=== PATIENT | male | born 1980 | race Caucasian/White ===

== ENCOUNTER 2021-10-25 18:16 | Inpatient (IN) | payer MEDICAID ==
[~2021-10-25] VITALS: Ht 167.6 cm; Wt 104.3 kg
[2021-10-25] MEDS ORDERED: CEFTRIAXONE 1 G in IV DEXTROSE 5% 50 ML IV ONE (19:30)
[2021-10-25] MEDS ORDERED: IV NORMAL SALINE 1000 ML BAG IV ONE (19:30)
[2021-10-25] MEDS ORDERED: VANCOMYCIN IV 1,000 MG in IV DEXTROSE 5% 250 ML IV ONE (19:30)
[2021-10-25] MEDS ORDERED: METRONIDAZOLE 500 MG/NS 100ML 100 ML IV ONE ×2 (19:30→20:17)
[2021-10-25] MEDS ORDERED: HYDROMORPHONE 1 MG/1 ML DISP.SYRIN IV ONE (19:45)
[2021-10-25] MEDS ORDERED: ONDANSETRON 4 MG/2 ML VIAL IV ONE (19:45)
[2021-10-25 20:11] LABS: HEMATOCRIT 39.2 % (36.7-47.1); MEAN CORPUSCULAR HEMOGLOBIN 29.1 uug (23.8-33.4); MEAN CORPUSCULAR VOLUME 87.1 fL (73.0-96.2); PLATELET COUNT (AUTO) 256 K/uL (152-348)
[2021-10-25] MEDS ORDERED: VANCOMYCIN IV 200 ML ONE (20:17)
[2021-10-25] MEDS ORDERED: CEFTRIAXONE /D5W 50ML IVPB **ER PYXIS IV ONE (20:18)
[2021-10-25 20:19] LABS: CARBON DIOXIDE 26 mmol/L (21-32); CHLORIDE 102 mmol/L (98-107); CREATININE 0.9 mg/dL (0.6-1.3); UREA NITROGEN, BLOOD 13 mg/dL (7-18)
[2021-10-25 20:28] LABS: GLUCOSE 335 mg/dL (74-106)
[2021-10-25 20:30] LABS: *BILIRUBIN,URIN NEGATIVE (NEGATIVE); *COLOR,URINE YELLOW (YELLOW); *KETONES,URINE TRACE (NEGATIVE); LEUKOCYTE ESTERASE ,URINE NEGATIVE (NEGATIVE); NITRITE, URINE NEGATIVE (NEGATIVE); PH,URINE 5.5 (5.0-8.0)
[2021-10-25 20:33] LABS: ALANINE AMINOTRANSFERASE 26 U/L (16-63); ALKALINE PHOSPHATASE 100 U/L (50-136); ASPARTATE AMINOTRANSFERASE 18 U/L (15-37); BILIRUBIN,DIRECT 0.1 mg/dL (0.0-0.2); BILIRUBIN,TOTAL 0.4 mg/dL (0.2-1.0); TOTAL PROTEIN, SERUM 7.3 g/dL (6.4-8.2)
[2021-10-25 20:35] LABS: *BLOOD, URINE TRACE (NEGATIVE); UGLUCOSE 3+ (NEGATIVE)
[2021-10-25 20:42] LABS: *CLARITY,URINE SLIGHTLY HAZY (CLEAR); BACTERIA,URINE FEW /HPF (NONE SEEN); SQUAMOUS EPITHELIAL CELL,UR MODERATE /HPF (NONE SEEN)
[2021-10-25] MEDS ORDERED: ONDANSETRON 4 MG/2 ML VIAL ONE (20:46)
[2021-10-25] MEDS ORDERED: HYDROMORPHONE 1 MG/1 ML DISP.SYRIN ONE (20:47)
[2021-10-25] MEDS ORDERED: DEXTROSE 50% 50 ML DISP.SYRIN IV PRN (22:30)
[2021-10-25] MEDS ORDERED: ONDANSETRON 4 MG/2 ML VIAL IV PRN (22:30)
[2021-10-25] MEDS ORDERED: MAGNESIUM HYDROXIDE 30 ML LIQUID UDC PO PRN (22:30)
[2021-10-25] MEDS ORDERED: REMEDY ESSENTIAL ZINC PASTE 113 GM TP PRN (22:30)
[2021-10-25 23:30] VITALS: BP 118/70
[2021-10-26] MEDS: IV NS 1000 ML 1,000 ML IV PRN ×2 (00:13→17:21)
[2021-10-26] MEDS ORDERED: PIPERACILLIN/TAZOBACTAM/D5W 100 ML IV ONE (00:24)
[2021-10-26] MEDS ORDERED: METRONIDAZOLE 500 MG/NS 100ML 100 ML IV ONE (00:24)
[2021-10-26] MEDS: PIPERACILLIN SODIUM/TAZOBACTAM 3.375 G in IV DEXTROSE 5% 50 ML IV SCH ×5 (00:42→23:51)
[2021-10-26 04:00] VITALS: BP 133/88
[2021-10-26] MEDS: ACETAMINOPHEN 325 MG TABLET PO PRN ×3 (05:06→23:51)
[2021-10-26] MEDS ORDERED: PIPERACILLIN/TAZOBACTAM/D5W 50 ML IV ONE (05:27)
[2021-10-26] MEDS ORDERED: METRONIDAZOLE 500 MG/NS 100ML 500 MG in PREMIXED 1 EACH IV SCH ×2 (06:00→14:00)
[2021-10-26] MEDS: BLOOD SUGAR DIAGNOSTIC 1 EACH STRIP VI SCH ×4 (06:34→20:44)
[2021-10-26 08:21] LABS: CREATININE 0.7 mg/dL (0.6-1.3); PHOSPHOROUS 3.5 mg/dL (2.5-4.9); POTASSIUM 4.1 mmol/L (3.5-5.1)
[2021-10-26 08:23] LABS: HEMATOCRIT 37.7 % (36.7-47.1); MEAN CORPUSCULAR HEMOGLOBIN 28.6 uug (23.8-33.4); MEAN CORPUSCULAR VOLUME 86.6 fL (73.0-96.2); PLATELET COUNT (AUTO) 258 K/uL (152-348)
[2021-10-26] MEDS: ASPIRIN 81 MG TAB.CHEW PO SCH (08:29)
[2021-10-26] MEDS: INSULIN REGULAR, HUMAN 300 UNIT/3 ML VIAL SQ PRN ×3 (08:34→16:40)
[2021-10-26] MEDS: HYDROMORPHONE 1 MG/1 ML DISP.SYRIN IV PRN ×2 (09:22→14:26)
[2021-10-26] MEDS: VANCOMYCIN IV 1,250 MG in IV DEXTROSE 5% 250 ML IV SCH ×2 (09:41→16:50)
[2021-10-26 11:53] VITALS: BP 136/76
[2021-10-26] MEDS ORDERED: INSU100I26 SQ (13:44)
[2021-10-26] MEDS ORDERED: ATOR20TA PO (13:44)
[2021-10-26] MEDS ORDERED: METF-440 PO (13:44)
[2021-10-26] MEDS ORDERED: LISI-782 PO (13:44)
[2021-10-26] MEDS ORDERED: ERGO500040 PO (13:44)
[2021-10-26 16:23] VITALS: BP 130/91
[2021-10-26] MEDS: METFORMIN HCL 500 MG TABLET PO SCH (16:34)
[2021-10-26 20:00] VITALS: BP 107/63
[2021-10-26] MEDS: ATORVASTATIN 40 MG TABLET PO SCH (20:40)
[2021-10-26] MEDS: INSULIN GLARGINE,HUM 300 UNITS/3 ML CARTRIDGE SQ SCH (20:46)
[2021-10-26] MEDS: INSULIN REGULAR, HUMAN 300 UNITS/3 ML VIAL SQ PRN (20:47)
[2021-10-26] MEDS ORDERED: ATORVASTATIN 20 MG TABLET PO SCH (21:00)
[2021-10-27] VITALS: BP 131/72
[2021-10-27] MEDS: VANCOMYCIN IV 1,250 MG in IV DEXTROSE 5% 250 ML IV SCH ×2 (01:04→10:02)
[2021-10-27 04:00] VITALS: BP 134/78
[2021-10-27] MEDS: PIPERACILLIN SODIUM/TAZOBACTAM 3.375 G in IV DEXTROSE 5% 50 ML IV SCH ×4 (05:51→23:23)
[2021-10-27] MEDS: BLOOD SUGAR DIAGNOSTIC 1 EACH STRIP VI SCH ×4 (06:34→20:02)
[2021-10-27 08:14] LABS: HEMATOCRIT 36.6 % (36.7-47.1); MEAN CORPUSCULAR HEMOGLOBIN 29.1 uug (23.8-33.4); MEAN CORPUSCULAR VOLUME 85.8 fL (73.0-96.2); PLATELET COUNT (AUTO) 264 K/uL (152-348)
[2021-10-27] MEDS: INSULIN REGULAR, HUMAN 300 UNIT/3 ML VIAL SQ PRN ×3 (08:14→16:49)
[2021-10-27] MEDS: METFORMIN HCL 500 MG TABLET PO SCH ×2 (08:16→16:45)
[2021-10-27] MEDS: ASPIRIN 81 MG TAB.CHEW PO SCH (08:16)
[2021-10-27 08:20] LABS: CREATININE 0.9 mg/dL (0.6-1.3); POTASSIUM 3.6 mmol/L (3.5-5.1)
[2021-10-27] MEDS: LISINOPRIL 5 MG TABLET PO SCH (08:20)
[2021-10-27 11:55] VITALS: BP 151/79
[2021-10-27] MEDS: HYDROMORPHONE 1 MG/1 ML DISP.SYRIN IV PRN (15:14)
[2021-10-27 16:30] VITALS: BP 105/75
[2021-10-27] MEDS: IV NS 1000 ML 1,000 ML IV PRN (16:37)
[2021-10-27] MEDS: VANCOMYCIN IV 1,500 MG in IV DEXTROSE 5% 500 ML IV SCH (17:27)
[2021-10-27] MEDS: ACETAMINOPHEN 325 MG TABLET PO PRN ×2 (19:48→23:23)
[2021-10-27 19:54] VITALS: BP 131/80
[2021-10-27] MEDS: ATORVASTATIN 40 MG TABLET PO SCH (20:02)
[2021-10-27] MEDS: INSULIN GLARGINE,HUM 300 UNITS/3 ML CARTRIDGE SQ SCH (20:03)
[2021-10-27] MEDS: INSULIN REGULAR, HUMAN 300 UNITS/3 ML VIAL SQ PRN (20:04)
[2021-10-28] MEDS: VANCOMYCIN IV 1,500 MG in IV DEXTROSE 5% 500 ML IV SCH ×3 (00:14→17:07)
[2021-10-28 00:56] VITALS: BP 125/68
[2021-10-28 05:00] VITALS: BP 145/87
[2021-10-28] MEDS: PIPERACILLIN SODIUM/TAZOBACTAM 3.375 G in IV DEXTROSE 5% 50 ML IV SCH ×3 (06:16→20:05)
[2021-10-28] MEDS: BLOOD SUGAR DIAGNOSTIC 1 EACH STRIP VI SCH ×4 (06:17→20:16)
[2021-10-28 06:52] LABS: HEMATOCRIT 36.8 % (36.7-47.1); MEAN CORPUSCULAR VOLUME 86.5 fL (73.0-96.2); PLATELET COUNT (AUTO) 278 K/uL (152-348)
[2021-10-28] MEDS ORDERED: BUPIVACAINE/EPI PF 0.25% 30 ML VIAL ONE (07:09)
[2021-10-28 07:16] LABS: CREATININE 0.7 mg/dL (0.6-1.3); POTASSIUM 3.5 mmol/L (3.5-5.1)
[2021-10-28] MEDS ORDERED: FENTANYL CITRATE 100 MCG/2 ML AMPUL ONE (07:33)
[2021-10-28] MEDS ORDERED: HYDROGEN PEROXIDE 3% 118 ML BOTTLE ONE (08:07)
[2021-10-28] MEDS: METFORMIN HCL 500 MG TABLET PO SCH ×2 (09:00→17:07)
[2021-10-28] MEDS: ASPIRIN 81 MG TAB.CHEW PO SCH (09:00)
[2021-10-28] MEDS: LISINOPRIL 5 MG TABLET PO SCH (09:00)
[2021-10-28] MEDS ORDERED: HYDROMORPHONE 1 MG/1 ML DISP.SYRIN ONE (09:01)
[2021-10-28 11:05] VITALS: BP 119/43
[2021-10-28] MEDS: INSULIN REGULAR, HUMAN 300 UNIT/3 ML VIAL SQ PRN ×2 (11:30→16:58)
[2021-10-28 15:14] VITALS: BP 120/66
[2021-10-28] MEDS ORDERED: LIDOCAINE-MPF 2% 5 ML VIAL IJ ONE (16:18)
[2021-10-28] MEDS ORDERED: PROPOFOL 200 MG/20 ML BOTTLE IV ONE (16:18)
[2021-10-28] MEDS ORDERED: KETOROLAC TROMETHAMINE 30 MG INJ IM ONE (16:18)
[2021-10-28] MEDS ORDERED: DEXAMETHASONE SOD PHOSPHATE 4 MG INJ IV ONE (16:18)
[2021-10-28] MEDS ORDERED: ONDANSETRON 4 MG/2 ML VIAL IV ONE (16:18)
[2021-10-28] MEDS: HYDROMORPHONE 1 MG/1 ML DISP.SYRIN IV PRN (17:15)
[2021-10-28] MEDS: IV NS 1000 ML 1,000 ML IV PRN (17:56)
[2021-10-28 20:00] VITALS: BP 133/73
[2021-10-28] MEDS: ACETAMINOPHEN 325 MG TABLET PO PRN (20:04)
[2021-10-28] MEDS: ATORVASTATIN 40 MG TABLET PO SCH (20:10)
[2021-10-28] MEDS ORDERED: KETOROLAC TROMETHAMINE 30 MG INJ IVP ONE (20:15)
[2021-10-28] MEDS: INSULIN GLARGINE,HUM 300 UNITS/3 ML CARTRIDGE SQ SCH (20:21)
[2021-10-28] MEDS: INSULIN REGULAR, HUMAN 300 UNITS/3 ML VIAL SQ PRN (20:21)
[2021-10-29] VITALS: BP 134/69
[2021-10-29] MEDS: PIPERACILLIN SODIUM/TAZOBACTAM 3.375 G in IV DEXTROSE 5% 50 ML IV SCH ×5 (00:01→23:01)
[2021-10-29] MEDS: VANCOMYCIN IV 1,500 MG in IV DEXTROSE 5% 500 ML IV SCH ×3 (00:55→17:09)
[2021-10-29 04:00] VITALS: BP 153/99
[2021-10-29] MEDS: BLOOD SUGAR DIAGNOSTIC 1 EACH STRIP VI SCH ×4 (06:38→20:41)
[2021-10-29] MEDS: ACETAMINOPHEN 325 MG TABLET PO PRN ×2 (06:46→17:00)
[2021-10-29 06:53] LABS: HEMATOCRIT 36.1 % (36.7-47.1); MEAN CORPUSCULAR HEMOGLOBIN 28.8 uug (23.8-33.4); MEAN CORPUSCULAR VOLUME 87.1 fL (73.0-96.2); PLATELET COUNT (AUTO) 285 K/uL (152-348)
[2021-10-29 07:24] LABS: CREATININE 0.9 mg/dL (0.6-1.3); POTASSIUM 3.8 mmol/L (3.5-5.1)
[2021-10-29 09:00] VITALS: BP 127/74
[2021-10-29] MEDS: METFORMIN HCL 500 MG TABLET PO SCH ×2 (09:06→16:59)
[2021-10-29] MEDS: ASPIRIN 81 MG TAB.CHEW PO SCH (09:06)
[2021-10-29] MEDS: LISINOPRIL 5 MG TABLET PO SCH (09:06)
[2021-10-29] MEDS: INSULIN REGULAR, HUMAN 300 UNIT/3 ML VIAL SQ PRN ×3 (09:09→17:08)
[2021-10-29] MEDS: ERGOCALCIFEROL 50,000 UNIT CAPSULE PO SCH (09:11)
[2021-10-29 12:00] VITALS: BP 141/89
[2021-10-29] MEDS: IV NS 1000 ML 1,000 ML IV PRN (14:00)
[2021-10-29 16:00] VITALS: BP 175/96
[2021-10-29] MEDS: CLONIDINE HCL 0.1 MG TABLET PO PRN (18:49)
[2021-10-29] MEDS: HYDROMORPHONE 1 MG/1 ML DISP.SYRIN IV PRN (19:53)
[2021-10-29 20:21] VITALS: BP 158/92
[2021-10-29] MEDS: ATORVASTATIN 40 MG TABLET PO SCH (20:41)
[2021-10-29] MEDS: INSULIN GLARGINE,HUM 300 UNITS/3 ML CARTRIDGE SQ SCH (20:44)
[2021-10-29] MEDS: INSULIN REGULAR, HUMAN 300 UNITS/3 ML VIAL SQ PRN (20:46)
[2021-10-30 00:15] VITALS: BP 128/77
[2021-10-30] MEDS: VANCOMYCIN IV 1,500 MG in IV DEXTROSE 5% 500 ML IV SCH ×3 (00:31→18:36)
[2021-10-30 04:24] VITALS: BP 112/75
[2021-10-30] MEDS: PIPERACILLIN SODIUM/TAZOBACTAM 3.375 G in IV DEXTROSE 5% 50 ML IV SCH ×4 (05:08→23:55)
[2021-10-30] MEDS: BLOOD SUGAR DIAGNOSTIC 1 EACH STRIP VI SCH ×4 (06:46→20:47)
[2021-10-30 07:10] LABS: HEMATOCRIT 33.9 % (36.7-47.1); MEAN CORPUSCULAR HEMOGLOBIN 28.8 uug (23.8-33.4); MEAN CORPUSCULAR VOLUME 86.6 fL (73.0-96.2); PLATELET COUNT (AUTO) 291 K/uL (152-348)
[2021-10-30 07:23] LABS: CREATININE 0.9 mg/dL (0.6-1.3); POTASSIUM 3.2 mmol/L (3.5-5.1)
[2021-10-30] MEDS: METFORMIN HCL 500 MG TABLET PO SCH ×2 (09:18→17:20)
[2021-10-30] MEDS: LISINOPRIL 5 MG TABLET PO SCH (09:23)
[2021-10-30] MEDS: HYDROMORPHONE 1 MG/1 ML DISP.SYRIN IV PRN ×2 (09:32→18:40)
[2021-10-30] MEDS: ASPIRIN 81 MG TAB.CHEW PO SCH (09:32)
[2021-10-30] MEDS ORDERED: POTASSIUM CHLORIDE 20 MEQ TAB.PRT.SR PO ONE (10:30)
[2021-10-30 12:00] VITALS: BP 121/71
[2021-10-30] MEDS: INSULIN REGULAR, HUMAN 300 UNIT/3 ML VIAL SQ PRN ×3 (12:54→17:30)
[2021-10-30] MEDS: IV NS 1000 ML 1,000 ML IV PRN (15:03)
[2021-10-30 16:00] VITALS: BP 148/89
[2021-10-30 20:37] VITALS: BP 143/87
[2021-10-30] MEDS: ATORVASTATIN 40 MG TABLET PO SCH (20:44)
[2021-10-30] MEDS: INSULIN GLARGINE,HUM 300 UNITS/3 ML CARTRIDGE SQ SCH (20:49)
[2021-10-30] MEDS: INSULIN REGULAR, HUMAN 300 UNITS/3 ML VIAL SQ PRN (20:50)
[2021-10-31] MEDS: HYDROMORPHONE 1 MG/1 ML DISP.SYRIN IV PRN ×5 (00:30→21:36)
[2021-10-31] MEDS: VANCOMYCIN IV 1,500 MG in IV DEXTROSE 5% 500 ML IV SCH ×2 (01:36→16:59)
[2021-10-31] MEDS: PIPERACILLIN SODIUM/TAZOBACTAM 3.375 G in IV DEXTROSE 5% 50 ML IV SCH ×3 (05:10→19:04)
[2021-10-31] MEDS: BLOOD SUGAR DIAGNOSTIC 1 EACH STRIP VI SCH ×4 (06:39→20:08)
[2021-10-31 07:14] LABS: HEMATOCRIT 34.7 % (36.7-47.1); MEAN CORPUSCULAR HEMOGLOBIN 29.3 uug (23.8-33.4); MEAN CORPUSCULAR VOLUME 86.3 fL (73.0-96.2); PLATELET COUNT (AUTO) 317 K/uL (152-348)
[2021-10-31 07:47] LABS: POTASSIUM 3.9 mmol/L (3.5-5.1)
[2021-10-31] MEDS: INSULIN REGULAR, HUMAN 300 UNIT/3 ML VIAL SQ PRN ×3 (08:19→18:09)
[2021-10-31] MEDS: ASPIRIN 81 MG TAB.CHEW PO SCH (08:22)
[2021-10-31] MEDS: LISINOPRIL 5 MG TABLET PO SCH (08:22)
[2021-10-31] MEDS: CALCIUM CARB/VITAMIN D 500MG-200UNITS TABLET PO SCH (08:22)
[2021-10-31] MEDS: METFORMIN HCL 500 MG TABLET PO SCH ×2 (08:22→17:11)
[2021-10-31] MEDS: IV NS 1000 ML 1,000 ML IV PRN (10:06)
[2021-10-31 12:00] VITALS: BP 143/86
[2021-10-31 16:00] VITALS: BP 151/87
[2021-10-31] MEDS: ACETAMINOPHEN 325 MG TABLET PO PRN (20:01)
[2021-10-31] MEDS: ATORVASTATIN 40 MG TABLET PO SCH (20:01)
[2021-10-31] MEDS: INSULIN GLARGINE,HUM 300 UNITS/3 ML CARTRIDGE SQ SCH (20:10)
[2021-10-31] MEDS: INSULIN REGULAR, HUMAN 300 UNITS/3 ML VIAL SQ PRN (20:11)
[2021-10-31 20:39] VITALS: BP 140/85
[2021-11-01] MEDS: IV NS 1000 ML 1,000 ML IV PRN ×2 (00:16→17:14)
[2021-11-01] MEDS: PIPERACILLIN SODIUM/TAZOBACTAM 3.375 G in IV DEXTROSE 5% 50 ML IV SCH ×4 (00:16→17:10)
[2021-11-01] MEDS: VANCOMYCIN IV 1,500 MG in IV DEXTROSE 5% 500 ML IV SCH ×3 (02:15→21:53)
[2021-11-01] MEDS: HYDROMORPHONE 1 MG/1 ML DISP.SYRIN IV PRN ×5 (02:16→19:39)
[2021-11-01 04:48] VITALS: BP 146/91
[2021-11-01] MEDS: BLOOD SUGAR DIAGNOSTIC 1 EACH STRIP VI SCH ×4 (06:17→20:25)
[2021-11-01 06:46] LABS: HEMATOCRIT 35.5 % (36.7-47.1); MEAN CORPUSCULAR VOLUME 86.6 fL (73.0-96.2); PLATELET COUNT (AUTO) 349 K/uL (152-348)
[2021-11-01 06:57] LABS: CREATININE 1.1 mg/dL (0.6-1.3); POTASSIUM 3.8 mmol/L (3.5-5.1)
[2021-11-01] MEDS: INSULIN REGULAR, HUMAN 300 UNIT/3 ML VIAL SQ PRN ×3 (09:08→17:10)
[2021-11-01] MEDS: ASPIRIN 81 MG TAB.CHEW PO SCH (09:09)
[2021-11-01] MEDS: METFORMIN HCL 500 MG TABLET PO SCH ×2 (09:09→17:10)
[2021-11-01] MEDS: CALCIUM CARB/VITAMIN D 500MG-200UNITS TABLET PO SCH (09:09)
[2021-11-01] MEDS: LISINOPRIL 5 MG TABLET PO SCH (09:10)
[2021-11-01 11:46] VITALS: BP 152/85
[2021-11-01 16:00] VITALS: BP 152/88
[2021-11-01 20:00] VITALS: BP 168/99
[2021-11-01] MEDS: ATORVASTATIN 40 MG TABLET PO SCH (20:12)
[2021-11-01] MEDS: INSULIN GLARGINE,HUM 300 UNITS/3 ML CARTRIDGE SQ SCH (20:19)
[2021-11-01] MEDS: INSULIN REGULAR, HUMAN 300 UNITS/3 ML VIAL SQ PRN (20:19)
[2021-11-01] MEDS: CLONIDINE HCL 0.1 MG TABLET PO PRN (20:58)
[2021-11-02] MEDS: HYDROMORPHONE 1 MG/1 ML DISP.SYRIN IV PRN ×6 (00:13→23:47)
[2021-11-02] MEDS: PIPERACILLIN SODIUM/TAZOBACTAM 3.375 G in IV DEXTROSE 5% 50 ML IV SCH ×4 (00:15→23:46)
[2021-11-02 04:00] VITALS: BP 145/93
[2021-11-02 06:14] LABS: HEMATOCRIT 33.6 % (36.7-47.1); MEAN CORPUSCULAR HEMOGLOBIN 28.7 uug (23.8-33.4); MEAN CORPUSCULAR VOLUME 86.5 fL (73.0-96.2); PLATELET COUNT (AUTO) 358 K/uL (152-348)
[2021-11-02 06:27] LABS: POTASSIUM 3.3 mmol/L (3.5-5.1)
[2021-11-02] MEDS: BLOOD SUGAR DIAGNOSTIC 1 EACH STRIP VI SCH ×4 (06:33→20:39)
[2021-11-02] MEDS ORDERED: POTASSIUM CHLORIDE 20 MEQ TAB.PRT.SR PO ONE (08:30)
[2021-11-02] MEDS: CALCIUM CARB/VITAMIN D 500MG-200UNITS TABLET PO SCH (08:55)
[2021-11-02] MEDS: VANCOMYCIN IV 1,500 MG in IV DEXTROSE 5% 500 ML IV SCH ×2 (08:55→16:00)
[2021-11-02] MEDS: ASPIRIN 81 MG TAB.CHEW PO SCH (08:55)
[2021-11-02] MEDS: METFORMIN HCL 500 MG TABLET PO SCH ×2 (08:55→16:04)
[2021-11-02] MEDS: INSULIN REGULAR, HUMAN 300 UNIT/3 ML VIAL SQ PRN ×2 (08:57→11:55)
[2021-11-02] MEDS: LISINOPRIL 5 MG TABLET PO SCH (09:14)
[2021-11-02] MEDS: ACETAMINOPHEN 325 MG TABLET PO PRN (11:42)
[2021-11-02 11:59] VITALS: BP 149/92
[2021-11-02 15:49] VITALS: BP 147/77
[2021-11-02] MEDS: IV NS 1000 ML 1,000 ML IV PRN (18:30)
[2021-11-02] MEDS: ATORVASTATIN 40 MG TABLET PO SCH (20:33)
[2021-11-02] MEDS: INSULIN REGULAR, HUMAN 300 UNITS/3 ML VIAL SQ PRN (20:38)
[2021-11-02] MEDS: INSULIN GLARGINE,HUM 300 UNITS/3 ML CARTRIDGE SQ SCH (20:38)
[2021-11-03] MEDS: VANCOMYCIN IV 1,500 MG in IV DEXTROSE 5% 500 ML IV SCH ×3 (03:02→21:06)
[2021-11-03] MEDS: HYDROMORPHONE 1 MG/1 ML DISP.SYRIN IV PRN ×5 (03:39→21:16)
[2021-11-03] MEDS: PIPERACILLIN SODIUM/TAZOBACTAM 3.375 G in IV DEXTROSE 5% 50 ML IV SCH ×4 (05:19→23:12)
[2021-11-03] MEDS: BLOOD SUGAR DIAGNOSTIC 1 EACH STRIP VI SCH ×4 (06:30→21:05)
[2021-11-03 06:32] LABS: HEMATOCRIT 32.8 % (36.7-47.1); PLATELET COUNT (AUTO) 372 K/uL (152-348)
[2021-11-03 06:46] LABS: CREATININE 0.9 mg/dL (0.6-1.3); POTASSIUM 3.4 mmol/L (3.5-5.1)
[2021-11-03] MEDS: METFORMIN HCL 500 MG TABLET PO SCH ×2 (08:55→16:31)
[2021-11-03] MEDS: ASPIRIN 81 MG TAB.CHEW PO SCH (08:55)
[2021-11-03] MEDS: CALCIUM CARB/VITAMIN D 500MG-200UNITS TABLET PO SCH (08:55)
[2021-11-03] MEDS: LISINOPRIL 10 MG TABLET PO SCH (09:02)
[2021-11-03] MEDS: INSULIN REGULAR, HUMAN 300 UNIT/3 ML VIAL SQ PRN ×3 (09:42→16:37)
[2021-11-03] MEDS ORDERED: POTASSIUM CHLORIDE 20 MEQ TAB.PRT.SR PO ONE (09:45)
[2021-11-03 11:43] VITALS: BP 131/79
[2021-11-03 16:00] VITALS: BP 166/94
[2021-11-03] MEDS: CLONIDINE HCL 0.1 MG TABLET PO PRN (16:31)
[2021-11-03 20:27] VITALS: BP 141/82
[2021-11-03] MEDS: ATORVASTATIN 40 MG TABLET PO SCH (20:58)
[2021-11-03] MEDS: INSULIN GLARGINE,HUM 300 UNITS/3 ML CARTRIDGE SQ SCH (21:00)
[2021-11-04] MEDS: HYDROMORPHONE 1 MG/1 ML DISP.SYRIN IV PRN ×6 (02:06→21:44)
[2021-11-04 04:00] VITALS: BP 162/91
[2021-11-04] MEDS: PIPERACILLIN SODIUM/TAZOBACTAM 3.375 G in IV DEXTROSE 5% 50 ML IV SCH ×4 (04:24→23:05)
[2021-11-04] MEDS: CLONIDINE HCL 0.1 MG TABLET PO PRN ×2 (05:52→22:14)
[2021-11-04 06:02] LABS: CREATININE 1.1 mg/dL (0.6-1.3); POTASSIUM 3.5 mmol/L (3.5-5.1)
[2021-11-04] MEDS: BLOOD SUGAR DIAGNOSTIC 1 EACH STRIP VI SCH ×4 (06:34→21:34)
[2021-11-04] MEDS: VANCOMYCIN IV 1,500 MG in IV DEXTROSE 5% 500 ML IV SCH ×2 (08:07→18:45)
[2021-11-04] MEDS: ASPIRIN 81 MG TAB.CHEW PO SCH (08:08)
[2021-11-04] MEDS: METFORMIN HCL 500 MG TABLET PO SCH ×2 (08:08→16:59)
[2021-11-04] MEDS: CALCIUM CARB/VITAMIN D 500MG-200UNITS TABLET PO SCH (08:08)
[2021-11-04] MEDS: LISINOPRIL 10 MG TABLET PO SCH (08:14)
[2021-11-04] MEDS: INSULIN REGULAR, HUMAN 300 UNIT/3 ML VIAL SQ PRN ×4 (08:21→22:34)
[2021-11-04 12:00] VITALS: BP 161/90
[2021-11-04] MEDS: IV NS 1000 ML 1,000 ML IV PRN (14:32)
[2021-11-04 16:00] VITALS: BP 149/91
[2021-11-04 20:37] VITALS: BP 177/94
[2021-11-04] MEDS: ATORVASTATIN 40 MG TABLET PO SCH (21:30)
[2021-11-04] MEDS: INSULIN GLARGINE,HUM 300 UNITS/3 ML CARTRIDGE SQ SCH (22:32)
[2021-11-05] MEDS: HYDROMORPHONE 1 MG/1 ML DISP.SYRIN IV PRN ×5 (03:01→23:20)
[2021-11-05] MEDS: VANCOMYCIN IV 1,500 MG in IV DEXTROSE 5% 500 ML IV SCH ×2 (04:08→17:24)
[2021-11-05 04:37] VITALS: BP 146/82
[2021-11-05] MEDS: PIPERACILLIN SODIUM/TAZOBACTAM 3.375 G in IV DEXTROSE 5% 50 ML IV SCH ×4 (05:19→22:52)
[2021-11-05] MEDS: IV NS 1000 ML 1,000 ML IV PRN ×2 (06:24→21:11)
[2021-11-05] MEDS: BLOOD SUGAR DIAGNOSTIC 1 EACH STRIP VI SCH ×4 (06:30→21:16)
[2021-11-05 07:24] LABS: CREATININE 1.1 mg/dL (0.6-1.3); POTASSIUM 3.4 mmol/L (3.5-5.1)
[2021-11-05] MEDS: METFORMIN HCL 500 MG TABLET PO SCH ×2 (08:45→16:22)
[2021-11-05] MEDS: ASPIRIN 81 MG TAB.CHEW PO SCH (08:45)
[2021-11-05] MEDS: CALCIUM CARB/VITAMIN D 500MG-200UNITS TABLET PO SCH (08:45)
[2021-11-05] MEDS: LISINOPRIL 10 MG TABLET PO SCH (08:48)
[2021-11-05] MEDS: ERGOCALCIFEROL 50,000 UNIT CAPSULE PO SCH (08:52)
[2021-11-05] MEDS ORDERED: POTASSIUM CHLORIDE 20 MEQ TAB.PRT.SR PO SCH (10:15)
[2021-11-05 11:12] VITALS: BP 140/90
[2021-11-05] MEDS: INSULIN REGULAR, HUMAN 300 UNIT/3 ML VIAL SQ PRN ×2 (11:25→17:29)
[2021-11-05] MEDS: GLUCERNA SHAKE VANILLA 237 ML CAN PO SCH (15:39)
[2021-11-05 16:14] VITALS: BP 156/86
[2021-11-05] MEDS ORDERED: GLUCERNA SHAKE VANILLA 237 ML CAN PO SCH (17:00)
[2021-11-05 20:36] VITALS: BP 169/97
[2021-11-05] MEDS: HYDROCODONE/APAP 10-325 MG TABLET PO PRN (21:12)
[2021-11-05] MEDS: ATORVASTATIN 40 MG TABLET PO SCH (21:12)
[2021-11-05] MEDS: INSULIN GLARGINE,HUM 300 UNITS/3 ML CARTRIDGE SQ SCH (21:18)
[2021-11-05] MEDS: INSULIN REGULAR, HUMAN 300 UNITS/3 ML VIAL SQ PRN (21:19)
[2021-11-06] MEDS: HYDROMORPHONE 1 MG/1 ML DISP.SYRIN IV PRN ×2 (04:13→17:24)
[2021-11-06] MEDS: PIPERACILLIN SODIUM/TAZOBACTAM 3.375 G in IV DEXTROSE 5% 50 ML IV SCH ×4 (04:14→23:19)
[2021-11-06 04:36] VITALS: BP 170/97
[2021-11-06] MEDS: VANCOMYCIN IV 1,500 MG in IV DEXTROSE 5% 500 ML IV SCH (05:10)
[2021-11-06] MEDS: BLOOD SUGAR DIAGNOSTIC 1 EACH STRIP VI SCH ×4 (06:36→20:57)
[2021-11-06 06:37] VITALS: BP 160/95
[2021-11-06] MEDS: CALCIUM CARB/VITAMIN D 500MG-200UNITS TABLET PO SCH ×2 (08:43→10:47)
[2021-11-06] MEDS: LISINOPRIL 20 MG TABLET PO SCH ×2 (08:43→10:49)
[2021-11-06] MEDS: ASPIRIN 81 MG TAB.CHEW PO SCH ×2 (08:43→10:46)
[2021-11-06] MEDS: METFORMIN HCL 500 MG TABLET PO SCH ×3 (08:43→17:24)
[2021-11-06] MEDS: GLUCERNA SHAKE VANILLA 237 ML CAN PO SCH ×2 (08:44→10:46)
[2021-11-06] MEDS: HYDROCODONE/APAP 10-325 MG TABLET PO PRN ×3 (08:44→20:53)
[2021-11-06] MEDS ORDERED: LISINOPRIL 10 MG TABLET PO SCH (09:00)
[2021-11-06 12:15] VITALS: BP 144/86
[2021-11-06 15:52] VITALS: BP 158/96
[2021-11-06] MEDS: INSULIN REGULAR, HUMAN 300 UNIT/3 ML VIAL SQ PRN (17:37)
[2021-11-06 20:46] VITALS: BP 160/94
[2021-11-06] MEDS: ATORVASTATIN 40 MG TABLET PO SCH (20:52)
[2021-11-06] MEDS: CLONIDINE HCL 0.1 MG TABLET PO PRN (20:53)
[2021-11-06] MEDS: INSULIN GLARGINE,HUM 300 UNITS/3 ML CARTRIDGE SQ SCH (20:54)
[2021-11-06] MEDS: INSULIN REGULAR, HUMAN 300 UNITS/3 ML VIAL SQ PRN (20:55)
[2021-11-07 04:23] VITALS: BP 163/98
[2021-11-07] MEDS: PIPERACILLIN SODIUM/TAZOBACTAM 3.375 G in IV DEXTROSE 5% 50 ML IV SCH (05:22)
[2021-11-07] MEDS: HYDROMORPHONE 1 MG/1 ML DISP.SYRIN IV PRN ×3 (05:22→21:32)
[2021-11-07] MEDS: BLOOD SUGAR DIAGNOSTIC 1 EACH STRIP VI SCH ×4 (06:31→20:50)
[2021-11-07] MEDS: GLUCERNA SHAKE VANILLA 237 ML CAN PO SCH (08:16)
[2021-11-07] MEDS: CALCIUM CARB/VITAMIN D 500MG-200UNITS TABLET PO SCH (08:17)
[2021-11-07] MEDS: METFORMIN HCL 500 MG TABLET PO SCH ×2 (08:17→17:20)
[2021-11-07] MEDS: ASPIRIN 81 MG TAB.CHEW PO SCH (08:17)
[2021-11-07] MEDS: LISINOPRIL 20 MG TABLET PO SCH (08:18)
[2021-11-07 12:14] VITALS: BP 144/89
[2021-11-07] MEDS: PIPERACILLIN SODIUM/TAZOBACTAM 3.375 G in IV DEXTROSE 5% 100 ML IV SCH ×2 (13:12→22:25)
[2021-11-07 17:07] VITALS: BP 115/58
[2021-11-07 20:32] VITALS: BP 160/96
[2021-11-07] MEDS: ATORVASTATIN 40 MG TABLET PO SCH (20:50)
[2021-11-07] MEDS: INSULIN REGULAR, HUMAN 300 UNITS/3 ML VIAL SQ PRN (20:51)
[2021-11-07] MEDS: INSULIN GLARGINE,HUM 300 UNITS/3 ML CARTRIDGE SQ SCH (21:32)
[2021-11-08 04:00] VITALS: BP 156/93
[2021-11-08] MEDS: PIPERACILLIN SODIUM/TAZOBACTAM 3.375 G in IV DEXTROSE 5% 100 ML IV SCH (05:28)
[2021-11-08] MEDS: BLOOD SUGAR DIAGNOSTIC 1 EACH STRIP VI SCH (06:32)
[2021-11-08] MEDS: METFORMIN HCL 500 MG TABLET PO SCH (09:17)
[2021-11-08] MEDS: CALCIUM CARB/VITAMIN D 500MG-200UNITS TABLET PO SCH (09:17)
[2021-11-08] MEDS: ASPIRIN 81 MG TAB.CHEW PO SCH (09:17)
[2021-11-08] MEDS: GLUCERNA SHAKE VANILLA 237 ML CAN PO SCH (09:18)
[2021-11-08 09:25] VITALS: BP 151/97
[2021-11-08] MEDS: LISINOPRIL 20 MG TABLET PO SCH (09:25)
== END 2021-11-08 10:30 | DRG 710 ==
LOC: ER 18:22 → TELE3 23:14 → MEDSURG3 10-30 11:30
PROVIDERS: ADMIT Nurse Practitioner Acute Care; ATTEND Nurse Practitioner Acute Care
PROC: 0D9Q0ZZ Drainage of Anus, Open Approach (ICD-10-PCS; 2021-10-28)
PROC: 05HB33Z Insertion of Infusion Device into Right Basilic Vein, Percutaneous Approach (ICD-10-PCS; principal; 2021-11-02)
DX: A41.9 Sepsis, unspecified organism (principal); I21.A1 Myocardial infarction type 2; K76.0 Fatty (change of) liver, not elsewhere classified; K61.1 Rectal abscess; E11.65 Type 2 diabetes mellitus with hyperglycemia; D64.9 Anemia, unspecified; K61.2 Anorectal abscess; R65.20 Severe sepsis without septic shock; Z86.16 Personal history of COVID-19; E66.01 Morbid (severe) obesity due to excess calories; Z68.37 Body mass index [BMI] 37.0-37.9, adult; E87.6 Hypokalemia; Z20.822 Contact with and (suspected) exposure to COVID-19; N43.3 Hydrocele, unspecified; Z79.4 Long term (current) use of insulin; Z79.84 Long term (current) use of oral hypoglycemic drugs; Z79.899 Other long term (current) drug therapy; Z71.3 Dietary counseling and surveillance; N45.3 Epididymo-orchitis; L03.317 Cellulitis of buttock
CPT/HCPCS: 36415; 71045; 76870; 83605; 83735; 84100; 84484; 85025; 85730; 87040; 87070; 87075; 87086; 93005; 93307; A4217; A4649; A4663; A6209; G0378; J0696; J1100; J1170; J1815; J1885; J2405; J2543; J3010; J3370; J3490; J7030; J7040; J7060; J7120